=== PATIENT | female | born 1975 | race Two or more races ===

== ENCOUNTER 2022-10-21 13:26 | Emergency (ER) | payer OTHER ==
[~2022-10-21] VITALS: Ht 165.1 cm; Wt 65.8 kg
== END 2022-10-21 22:53 | disposition home or self-care (01) ==
LOC: ER 13:26
DX: R10.2 Pelvic and perineal pain (principal); N93.8 Other specified abnormal uterine and vaginal bleeding; Z91.013 Allergy to seafood
CPT/HCPCS: 36415; 71045; 74022; 74177; 93005; Q9965